=== PATIENT | male | born 1955 | race Caucasian/White ===

== ENCOUNTER 2024-07-02 14:56 | Emergency (ER) | payer OTHER ==
[~2024-07-02] VITALS: Ht 182.9 cm; Wt 77.1 kg
[2024-07-02] MEDS ORDERED: Ventolin5 MG/1 ML (15:13)
[2024-07-02] MEDS ORDERED: NS 1,000 ML IV SCH (15:20)
[2024-07-02] MEDS ORDERED: Mag Sulfate 1 GM/D5% 100ML 100 ML IV ONE (15:20)
[2024-07-02 15:28] LABS: BASOPHILS ABSOLUTE AUTO 0.03 K/mm3 (0.00-0.23); BASOPHILS PERCENT AUTO 0 % (0-2); EOSINOPHILS ABSOLUTE AUTO 0.16 K/mm3 (0.00-0.68); EOSINOPHILS PERCENT AUTO 2 % (0-6); Hematocrit 46.2 % (37.0-53.0); Hemoglobin 16.1 g/dL (13.5-17.5); IMMATURE GRAN ABSOLUTE AUTO 0.02 K/mm3 (0.00-0.10); IMMATURE GRAN PERCENT AUTO 0 % (0-1); LYMPHOCYTES ABSOLUTE AUTO 2.57 K/mm3 (0.84-5.20); LYMPHOCYTES PERCENT AUTO 33 % (21-46); MONOCYTES ABSOLUTE AUTO 0.86 K/mm3 (0.16-1.47); MONOCYTES PERCENT AUTO 11 % (4-13); Mean Corpuscular HGB Conc 34.8 g/dL (31.5-36.5); Mean Corpuscular Volume 83 fL (80-100); Mean Platelet Volume 9.3 fL (9.1-12.4); NEUTROPHILS ABSOLUTE AUTO 4.15 K/mm3 (1.96-9.15); NEUTROPHILS PERCENT AUTO 53 % (41-73); Platelet Count 288 K/mm3 (150-400); RDW Coefficient Variation 13.3 % (11.7-14.2); RDW Standard Deviation 40.6 fL (35.1-46.3); Red Blood Cell Count 5.55 M/mm3 (4.30-5.90); White Blood Cell Count 7.79 K/mm3 (4.00-11.30)
[2024-07-02] MEDS ORDERED: Albuterol 2.5 MG/3 ML VIAL INH SCH (15:30)
[2024-07-02] MEDS ORDERED: MethylPREDNISolone Sod Succ 125 MG Vial IV ONE (15:30)
[2024-07-02] MEDS ORDERED: propofoL 20 ML IV ONE (15:32)
[2024-07-02 15:34] LABS: Source, Urine Clean Catch
[2024-07-02] MEDS ORDERED: DiphenhydrAMINE HCl 50 MG/ML 1ML Vial ONE (15:37)
[2024-07-02 15:38] LABS: Appearance, Urine Clear (Clear); Bilirubin, Urine Neg (Neg); Blood, Urine Neg (Neg); Glucose Qualitative, Urine Neg (Neg); Ketones, Urine Neg (Neg); Leukocyte Esterase, Urine Neg (Neg); Nitrite, Urine Neg (Neg); Protein, Urine Neg (Neg); Specific Gravity, Urine 1.005 (1.003-1.022); Urobilinogen, Urine NORM (Normal)
[2024-07-02] MEDS ORDERED: LORazepam 2 MG/ML 1ML Injection ONE (15:41)
[2024-07-02] MEDS ORDERED: Adenosine 3 MG/ML 2 ML Vial ONE (15:45)
[2024-07-02 15:46] LABS: Color, Urine Pale Yellow (P-Yellow)
[2024-07-02 17:39] LABS: Calcium, Ionized (POC) 1.11 mmol/L (1.10-1.46); Chloride (POC) 107 mmol/L (98-108); Glucose (ISTAT POC) 105 mg/dL (70-99); Hemoglobin (POC) 14.3 g/dL (13.5-17.5); Sodium (POC) 136 mmol/L (135-148); Total CO2 (POC) 22 mmol/L (21-32)
[2024-07-02] MEDS ORDERED: LORazepam 2 MG/ML 1ML Injection IV ONE (19:16)
[2024-07-02] MEDS ORDERED: Magnesium Sulfate 500 MG / ML 2ML Vial XX ONE (19:16)
== END 2024-07-02 18:03 | disposition home or self-care (01) ==
LOC: ER 14:56
PROVIDERS: Emergency Medicine
DX: R00.0 Tachycardia, unspecified (principal); I48.91 Unspecified atrial fibrillation; Z88.5 Allergy status to narcotic agent; Z79.1 Long term (current) use of non-steroidal anti-inflammatories (NSAID)
CPT/HCPCS: 71045; 80047; 81003; 85014; 85025; 93005; 93010; 94644; 94664; 96361; 96374; 96375; 99285-25; J0153; J1200; J2060; J2704; J2919; J3475; J7030